=== PATIENT | female | born 1980 | race Caucasian/White ===

== ENCOUNTER → 2019-12-10 06:29 | Outpatient (CLI) | payer OTHER, SELFPAY ==
--- NOTE | 2019-12-10 14:16 | NEURO ---
NCS and/or EMG Patient Report Ordering Doctor: Iam De La Torre DATE OF SERVICE: 12/10/19 Shira Denis is a 39-year-old female presents for electrodiagnostic testing of the upper limbs. She reports numbness and pain in both hands. Electrodiagnostic findings: Median motor nerve demonstrates prolonged distal latency with normal amplitude and conduction velocity bilaterally. Normal ulnar motor response is noted bilaterally. Prolonged right median sensory latency at the wrist. Absent left median sensory response at the wrist. Normal ulnar and radial sensory responses. On needle EMG, all muscles tested in upper limb showed no evidence of denervation with normal motor unit action potentials. Electrodiagnostic assessment: This is an abnormal study in the upper limbs. 1. Electrodiagnostic findings demonstrate bilateral median mononeuropathy. This is consistent with a moderate bilateral carpal tunnel syndrome. If there are any further questions, please do not hesitate to contact me
== END ==
LOC: PSN 06:31
PROVIDERS: PCP Family Medicine; Referring Provider Specialist; Visit Provider Specialist
DX: R20.2 Paresthesia of skin (principal)
CPT/HCPCS: 95886; 95912

== ENCOUNTER 2022-03-22 15:38 | Observation (INO) | payer OTHER, SELFPAY ==
[2022-03-22] VITALS (12 sets, daily range): BP systolic 144–175; BP diastolic 74–99; PULSE 78–100; RESP 15–16; TEMP 36.4–36.7; O2SAT 98–100; BMI 28.6; BMI 27.8
--- NOTE | 2022-03-22 15:55 | EKG12_ITS ---
Test Reason : Blood Pressure : / mmHG Vent. Rate : 081 BPM Atrial Rate : 081 BPM P-R Int : 170 ms QRS Dur : 100 ms QT Int : 404 ms P-R-T Axes : 054 -08 037 degrees QTc Int : 469 ms Normal sinus rhythm Possible Left atrial enlargement Incomplete right bundle branch block Borderline ECG Confirmed by BRANDON MOORE, BEULAH ([id number]), city editor EARLE OSBORNE ([id number]) on 03/24/2022 2:16:28 P M Referred By: LUIGI/GRICELDA Confirmed By:DIPTI TAYLOR MD
--- NOTE | 2022-03-22 16:00 | RAD_ITS ---
EXAM: XR CHEST, 1 VIEW CLINICAL INDICATION: Stroke TECHNIQUE: Frontal view of the chest. This report was created using [employer] report generation technology. COMPARISON: None. FINDINGS: LUNGS AND PLEURAL SPACES: Normal. No consolidation or edema. No pneumothorax. No effusion. HEART: Normal heart size. MEDIASTINUM: No mediastinal or hilar mass. BONES/JOINTS: No acute abnormality. SOFT TISSUES: Normal. RAD/Chest 1 View (Portable) IMPRESSION: No acute cardiopulmonary disease. Electronically Signed: Rosales Man MD at 16:26 EDT ,
[2022-03-22 16:05] LABS: Absolute Lymphocyte Count 1.94 X10^3/uL (0.83-4.51); Absolute Neutrophil Count 4.9 X10^3/uL (2.0-7.7); Basophil# 0.04 X10^3/uL; Basophil% 0.5 % (0-1); Eosinophil# 0.04 X10^3/uL; Eosinophils% 0.5 % (0-5); Hematocrit 39.8 % (37-47); Lymphocyte # 1.94 X10^3/ul (0.83-4.51); Lymphocyte % 26.5 % (19-41); Mean Corp Hgb Conc 35.2 g/dL (32-36); Mean Corpuscular Volume 88.1 fL (81-99); Mean Platelet Vol. 9.9 fl (6.2-12.0); Monocyte# 0.38 X10^3/uL; Monocyte% 5.2 % (0-10); NRBC Flagged by Analyzer 0 % (0-5); Platelet Count 296 K/mm3 (150-450); RBC Distribution Width CV 12.5 % (11.6-14.6); Red Blood Count 4.52 M/mm3 (4.2-5.4); White Blood Count 7.3 K/mm3 (4.4-11.0)
[2022-03-22 16:19] LABS: Anion Gap 6 (5-15); BUN 13 mg/dL (7-18); BUN/Creat Ratio 13.3 RATIO (10-20); Calcium,Total 9.6 mg/dL (8.5-10.1); Chloride 105 mmol/L (98-107); Creatinine, Serum 0.98 mg/dL (0.55-1.02); EST Glomerular Filtration Rate 66 mL/min (>60); Est Glom Filt Rate - Afr Amer 80 mL/min (>60); Estimated Creatinine Clearance 70.72 ml/min; Glucose 115 mg/dL (74-106); Potassium 3.4 mmol/L (3.5-5.1); Sodium Level 137 mmol/L (136-145)
[2022-03-22] MEDS: Ondansetron 4 MG/2 ML Vial IV (16:44)
[2022-03-22] MEDS: LORazepam 2 MG/ML Syringe 0.5 MG IV (16:44)
[2022-03-22] MEDS: 0.9% Normal Saline 1,000 ML 1000 ML IV (16:44)
--- NOTE | 2022-03-22 16:45 | ED.VIS.STROK ---
HPI History of Present Illness Chief Complaint: Dizziness Informant: patient Narrative Narrative: Patient is a 41-year-old female with history of ADHD, depression and joint pain presenting for feeling disoriented and having mouth numbness. Patient states yesterday she felt disorientated nauseous all day. Today the symptoms have continued and at some point today she started to feel numbness around her mouth on the bottom lip as well as her left I numb and her left cheek is numb. She states she is has a hard time concentrating. Denies any blurry vision but does not feel that she is seeing things well. She also feels quite dizzy and has nausea but no vomiting. She denies any abdominal pain or change in her bowel habits. She denies any chest pain or new shortness of breath. She notes has been feeling short of breath since 2020 after she had a bad cold. She works as a electric truck operator and states it took everything she had to be able to concentrate to get back to her base. She cannot tell me exactly when the symptoms started but states has been a couple of hours. She also complains of having bumps on the back of her head. She saw her doctor who thought maybe she had spider bites and prescribed a strong antibiotic. She states they can be painful. States that sometimes they seem like they need to drain but there is no head to them. She did not fill the prescription for antibiotics because by the time she actually picked it up it already been restocked and she also was scared of taking it because her doctor warned her about how strong they are and that she might get diarrhea. No other complaints at this time. [facility] Medical History Carpal tunnel syndrome, bilateral Depression Home Medications dextroamphetamine-amphetamine 30 mg tablet (Adderall) 30 mg PO BID ADHD 03/22/22 [History Last Taken 03/22/22] duloxetine 60 mg capsule,delayed release 60 mg PO BID DEPRESSION 03/22/22 [History Last Taken 03/21/22] etodolac 400 mg tablet 400 mg PO BID PAIN 03/22/22 [History Last Taken 03/21/22] Allergy/AdvReac Type Severity Reaction Status Date / Time No Known Allergies Allergy Verified 03/22/22 15:39 Surgical History H/O bilateral breast reduction surgery Social History Smoking Status: Never smoker ROS ROS ED Constitutional Constitutional ED: Denies chills or fever(s) Eyes Eyes: Reports change in vision; Denies blurry vision or diplopia ENT ENT ED: Reports other Details: Congestion ; Denies rhinorrhea or sore throat Cardiovascular Cardiovascular: Denies chest pain or palpitations Respiratory/Chest Respiratory/Chest: Reports dyspnea; Denies cough Gastrointestinal Gastrointestinal: Reports nausea; Denies abdominal pain, constipation, diarrhea or vomiting Genitourinary Genitourinary ED: Denies dysuria or hematuria Musculoskeletal Musculoskeletal: Denies arthralgias or myalgias Integumentary Denies rash Neurologic Neurologic: Reports headache(s) and paresthesias Psychiatric Psychiatric: Reports anxiety Hematologic/Lymphatic Hematologic/Lymphatic: Denies easy bleeding or easy bruising EXAM Physical Exam Const Vital Signs: 03/22/22 15:40 03/22/22 15:44 03/22/22 15:56 Temperature 98 F Temperature Source Temporal Pulse Rate 99 Respiratory Rate 15 Respiratory Effort Normal Non-Labored Respiratory Pattern Normal Blood Pressure 160/93 H Blood Pressure Mean 115 Pulse Ox 100 100 Oxygen Delivery Method Room Air Room Air 03/22/22 15:55 03/22/22 16:25 03/22/22 16:30 Temperature Temperature Source Pulse Rate 100 88 80 Respiratory Rate 15 16 15 Respiratory Effort Respiratory Pattern Blood Pressure 163/85 H 175/85 H 169/77 H Blood Pressure Mean 111 115 107 Pulse Ox 99 99 99 Oxygen Delivery Method Room Air Room Air Room Air 03/22/22 16:45 03/22/22 17:00 03/22/22 17:00 Temperature Temperature Source Pulse Rate 81 81 Respiratory Rate 15 Respiratory Effort Respiratory Pattern Blood Pressure 152/78 H 152/78 H 152/78 H Blood Pressure Mean 102 102 102 Pulse Ox 99 Oxygen Delivery Method Room Air 03/22/22 17:30 03/22/22 18:00 03/22/22 18:00 Temperature Temperature Source Pulse Rate 84 83 83 Respiratory Rate 15 15 Respiratory Effort Respiratory Pattern Blood Pressure 170/78 H 167/83 H Blood Pressure Mean 108 111 Pulse Ox 100 100 Oxygen Delivery Method Room Air Room Air Positive well nourished and well developed General Appearance ED: well developed and NAD HEENT Reports TM's clear and moist mucous membranes atraumatic Tympanic Membrane ED: Yes TM's clear right and TM abnormal effusion and retracted Mouth ED: Yes oral and palatal mucosa normal and Yes moist mucous membranes abnormal Mouth: oral and palatal mucosa normal and moist mucous membranes abnormal Eyes PERRL and EOMs intact bilaterally Eyes Narrative: Unable to evaluate for nystagmus is every time patient tries to look in to either sideshe has to squeeze her eyes shut and gets dizzy Neck supple and no JVD Neck Narrative: No nuchal rigidity Chest Wall inspection of chest normal Resp normal respiratory effort and clear to auscultation bilaterally Cardio no murmurs Rate: regular rate Rhythm: regular rhythm GI normal to inspection, nondistended, normoactive bowel sounds, soft to palpation and non-tender Back/Spine no CVA tenderness Neuro oriented x3 and CN's II-XII intact bilaterally Sensorium / Orientation: alert Speech: speech normal Motor Exam: strength 5/5 throughout Psych Mood & Affect: anxious and tearful Skin no wounds Skin Narrative: Subcentimeter scattered erythematous raised lesions on the scalp most around the right occipital region. No associated drainage. The hair follicles in that area are broken off. No significant tenderness. No fluctuance appreciated. NIHSS NIHSS Initial: 1a Level of Consciousness: 0 1b LOC Questions (Score 2 if aphasic/stupor): 0 1c LOC Commands (Only score 1st attempt): 0 2 Best Gaze (If aphasic, use reflexive mvmts.): 0 3 Visual: 0 4 Facial Palsy: 0 5 Motor Arm Right (UN = amputation/fusion): 0 5 Motor Arm Left: 0 6 Motor Leg Right: 0 6 Motor Leg Left: 0 7 Limb ataxia (Only + if out of proportion): 0 8 Sensory (Aphasia/stupor=0 or 1, coma=2): 1 9 Best Language: 0 10 Dysarthria (mute, coma=2, intubated=UN): 0 11 Extinction and Inattention (only scored if +): 0 Total Score: 1 MDM MDM MDM Narrative Medical decision making narrative: Patient is evaluated for dizziness, paresthesias of the left side and feeling disoriented. Symptoms started yesterday. Her NIH is 1 for paresthesias. She does have what appears to be vertigo however given her paresthesias I do not think I can rule out central vertigo. She not a tPA candidate given her symptoms started yesterday. I do question of there is a component of anxiety associated with her symptoms. She is given dose of Ativan with improvement of her symptoms. Patient is also given IV fluids and Zofran. On repeat evaluation she states she is feeling better but does have nystagmus more so with leftward gaze. She is still quite symptomatic and I do not think she will tolerate a Chrissie-Hallpike maneuver at this time. Patient now only has paresthesias of her face but no longer has paresthesias of her arm and leg. Work-up including CT of the brain, chest x-ray and lab work as well as EKG is largely unremarkable. Patient is given aspirin in the ER. She will be admitted for further stroke evaluation. Patient and significant other agreeable this plan of care. Patient remains hemodynamically stable in the ER. Lab Data Attestation: I reviewed the patient's lab results. Labs: Laboratory Results - last 24 hr 03/22/22 03/22/22 03/22/22 15:43 15:43 15:43 WBC 7.3 RBC 4.52 Hgb 14.0 Hct 39.8 MCV 88.1 MCH 31.0 MCHC 35.2 RDW Std Deviation 41.0 RDW Coeff of Bob 12.5 Plt Count 296 MPV 9.9 Immature Gran % (Auto) 0.300 Neut % (Auto) 67.0 Lymph % (Auto) 26.5 [place] % (Auto) 5.2 Eos % (Auto) 0.5 Baso % (Auto) 0.5 Absolute Neuts (auto) 4.9 Absolute Lymphs (auto) 1.94 Nucleated RBC % 0 PT 13.2 INR 1.0 APTT 28.3 Sodium 137 Potassium 3.4 L Chloride 105 Carbon Dioxide 26.0 Anion Gap 6 BUN 13 Creatinine 0.98 Estim Creat Clear Calc 70.72 Est GFR (MDRD) Af Amer 80 Est GFR (MDRD) Non-Af 66 BUN/Creatinine Ratio 13.3 Glucose 115 H Calcium 9.6 Urine Color Urine Clarity Urine pH Ur Specific [place] Urine Protein Urine Glucose (UA) Urine Ketones Urine Occult Blood Urine Nitrite Urine Bilirubin Urine Urobilinogen Ur Leukocyte Esterase Urine RBC Urine WBC Ur Squamous Epith Cells Urine Bacteria Urine Mucus Urine Test 03/22/22 17:28 WBC RBC Hgb Hct MCV MCH MCHC RDW Std Deviation RDW Coeff of Bob Plt Count MPV Immature Gran % (Auto) Neut % (Auto) Lymph % (Auto) [place] % (Auto) Eos % (Auto) Baso % (Auto) Absolute Neuts (auto) Absolute Lymphs (auto) Nucleated RBC % PT INR APTT Sodium Potassium Chloride Carbon Dioxide Anion Gap BUN Creatinine Estim Creat Clear Calc Est GFR (MDRD) Af Amer Est GFR (MDRD) Non-Af BUN/Creatinine Ratio Glucose Calcium Urine Color Yellow Urine Clarity Clear Urine pH 8.0 Ur Specific [place] 1.010 Urine Protein Negative Urine Glucose (UA) Normal Urine Ketones Negative Urine Occult Blood Negative Urine Nitrite Negative Urine Bilirubin Negative Urine Urobilinogen Normal Ur Leukocyte Esterase 25 H Urine RBC 0 SEEN Urine WBC 0 SEEN Ur Squamous Epith Cells 0 SEEN Urine Bacteria 0 SEEN Urine Mucus 0 SEEN Urine Test Negative Radiography Diagnostic Testing: Clinical Impression(s) from Imaging Studies Chest X-Ray 03/22/22 16:00 IMPRESSION: No acute cardiopulmonary disease. Electronically Signed: Rosales Man MD at 16:26 EDT , Brain CT 03/22/22 16:53 IMPRESSION: There are no acute intracranial findings. Electronically Signed: Ari Jeter MD at 17:07 EDT , Rhythm Strip Rhythm Strip: Sinus Rhythm Rate: 81 Ectopy: None EKG Initial EKG: Attestation: I personally reviewed and interpreted this EKG as follows: Interpretation: Sinus Rhythm Comments: Normal sinus rhythm at a rate of 81 Normal axis Incomplete right bundle branch block Normal ST segments Discharge Plan Dx/Rx/DC Orders Clinical Impression: Left facial numbness, Dizziness Disposition Disposition: Acute Care Hospital [facility] Discharge Date/Time: 03/22/22 18:46
--- NOTE | 2022-03-22 16:53 | CT_ITS ---
STUDY: CT BRAIN WITHOUT CONTRAST REASON FOR EXAM: Female, 41 years old. dizziness, left sided paresthesias TECHNIQUE: Transaxial CT imaging of the brain was performed without administration of intravenous contrast material. Individualized dose optimization techniques were used for this CT. COMPARISON: None FINDINGS: Normal calvarium. Normal soft tissues. Normal size ventricles and extra-axial spaces for the patient''s age. Normal white matter tracts of the cerebral hemispheres. Normal basal ganglia and thalami. Normal brainstem. Normal cerebellum. There is no intracranial hemorrhage. There are no findings of an acute ischemic infarction. There is sinus disease. ASPECTS 10 CT/Brain/Head without Contrast IMPRESSION: There are no acute intracranial findings. Electronically Signed: Ari Jeter MD at 17:07 EDT ,
[2022-03-22 17:01] LABS: Prothrombin Time (Protime)PT. 13.2 SECONDS (11.7-14.9)
[2022-03-22 17:02] LABS: Partial Thromboplast Time 28.3 Seconds (24.1-36.2)
[2022-03-22 17:31] LABS: Bacteria 0 SEEN /hpf (None Seen); Mucous, Urine 0 SEEN /hpf (<or=2+); Red Blood Cells-Urine 0 SEEN /hpf (0-5); Squamous Epithelial Cells - UA 0 SEEN /hpf (5-10); White Blood Cells 0 SEEN /hpf (0-5)
[2022-03-22 17:42] LABS: Color, Urine Yellow (Yellow); Glucose, Dipstick Normal (Normal); Ketone-Dipstick Negative (Negative); Leukocyte Esterase-Dipstick 25 /ul (Negative); Nitrite-Dipstick Negative (Negative); Occult Blood-Urine Negative /ul (Negative); Protein-Dipstick Negative (Negative); Urine Bilirubin Dipstick Negative (Negative); Urine Clarity Clear (Clear); Urine Urobilinogen Normal (Normal)
[2022-03-22 17:48] LABS: Internal QC Validated? YES +Cl - CLEAR BKGD; Pregnancy, Urine Negative Negative
--- NOTE | 2022-03-22 18:15 | NURSING ---
DR BOWDEN FOR DR GARCIA
--- NOTE | 2022-03-22 18:25 | NURSING ---
PCU OBS KOTSONIS VERTIGO, PARESTESIAS
[2022-03-22] MEDS: Aspirin 325 MG Tablet PO (18:37)
[2022-03-22] MEDS: Meclizine HCl 25 MG Tablet PO (18:37)
--- NOTE | 2022-03-22 18:41 | PCM.HP.STD ---
HPI - General General Date of Admission: 03/22/22 HPI Narrative MELI KYLE, is a 41 F who presents to the hospital with and inability to focus, dizziness, and left facial numbness. 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 She states that while she was in the ambulance on her way to the hospital she could not smile, she states that the numbness is is much better now though still present and in the ER her NIH is a 1. CT of the brain was unremarkable. Of note she takes a chronic NSAID for multi joint pain. 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 Since she had COVID or which she assumes was COVID in 2020, this because she refused to get tested and refused to be vaccinated, she has also developed what sounds like Raynaud's syndrome in her hands and increased pain in her joints including both of her feet both of her knees and both of her hips. [facility] Medical History Carpal tunnel syndrome, bilateral Depression Home Medications dextroamphetamine-amphetamine 30 mg tablet (Adderall) 30 mg PO BID ADHD 03/22/22 [History Last Taken 03/22/22] duloxetine 60 mg capsule,delayed release 60 mg PO BID DEPRESSION 03/22/22 [History Last Taken 03/21/22] etodolac 400 mg tablet 400 mg PO BID PAIN 03/22/22 [History Last Taken 03/21/22] Allergy/AdvReac Type Severity Reaction Status Date / Time No Known Allergies Allergy Verified 03/22/22 15:39 Family History no significant family his no significant family history Surgical History H/O bilateral breast reduction surgery Social History Smoking Status: Never smoker ROS Constitutional Constitutional: Denies chills, fatigue, fever(s) or malaise Eyes Eyes: Denies blurry vision ENT HEENT: Denies headache(s) or nasal discharge Cardiovascular Cardiovascular: Denies chest pain, dyspnea on exertion or syncope Respiratory/Chest Respiratory/Chest: Denies cough, shortness of breath at rest or shortness of breath with exertion Gastrointestinal Gastrointestinal: Denies constipation, diarrhea, nausea or vomiting Genitourinary Genitourinary: Denies dysuria Musculoskeletal Musculoskeletal: Reports joint pain Neurologic Neurologic: Reports confusion and paresthesias; Denies focal weakness, numbness or tremor(s) Psychiatric Psychiatric: Denies anxiety or depression Vital Signs Vital Signs Vital Signs: 03/22/22 15:40 03/22/22 15:44 03/22/22 15:56 Temperature 98 F Temperature Source Temporal Pulse Rate 99 Respiratory Rate 15 Respiratory Effort Normal Non-Labored Respiratory Pattern Normal Blood Pressure 160/93 H Blood Pressure Mean 115 Pulse Ox 100 100 Oxygen Delivery Method Room Air Room Air 03/22/22 15:55 03/22/22 16:25 03/22/22 16:30 Temperature Temperature Source Pulse Rate 100 88 80 Respiratory Rate 15 16 15 Respiratory Effort Respiratory Pattern Blood Pressure 163/85 H 175/85 H 169/77 H Blood Pressure Mean 111 115 107 Pulse Ox 99 99 99 Oxygen Delivery Method Room Air Room Air Room Air 03/22/22 16:45 03/22/22 17:00 03/22/22 17:00 Temperature Temperature Source Pulse Rate 81 81 Respiratory Rate 15 Respiratory Effort Respiratory Pattern Blood Pressure 152/78 H 152/78 H 152/78 H Blood Pressure Mean 102 102 102 Pulse Ox 99 Oxygen Delivery Method Room Air 03/22/22 17:30 03/22/22 18:00 03/22/22 18:00 Temperature Temperature Source Pulse Rate 84 83 83 Respiratory Rate 15 15 Respiratory Effort Respiratory Pattern Blood Pressure 170/78 H 167/83 H Blood Pressure Mean 108 111 Pulse Ox 100 100 Oxygen Delivery Method Room Air Room Air 03/22/22 18:21 Temperature 97.6 F L Temperature Source Temporal Pulse Rate 88 Respiratory Rate 15 Respiratory Effort Respiratory Pattern Blood Pressure 165/75 H Blood Pressure Mean 105 Pulse Ox 100 Oxygen Delivery Method Room Air Weight Weight: 177 lb 7.554 oz Body Mass Index (BMI) 28.6 Physical Exam Narrative General: Alert, Oriented x3, Cooperative, No apparent distress HEENT: Atraumatic, PERRLA, EOMI, Normocephalic Oral: Moist Mucosa Neck: Supple, No JVD Lungs: Clear to auscultation, Normal air movement, No rhonchi, No wheeze, No rales Cardiovascular: Regular rate, Regular Rhythm, Normal S1, Normal S2, JESUS since childhood Abdomen: Soft, Non Tender, Non-Distended, No Hepato-splenomegaly Extremities: No edema, Capillary Refill Less than 3 Seconds Skin: No rashes, No breakdown Musculoskeletal: Heberden's nodes in all of her fingers Neurological: Cranial nerves II-XII grossly intact, Motor Exam 5/5 strength throughout, Sensory exam intact to light touch and pain in her extremities, decreased sensation in her left face compared to the right face Psych/Mental Status: Normal Affect, Appropriate Results Lab / Micro Data Result Diagrams: 03/22/22 15:43 03/22/22 15:43 Labs: Laboratory Results - last 24 hr 03/22/22 15:43: WBC 7.3, RBC 4.52, Hgb 14.0, Hct 39.8, MCV 88.1, MCH 31.0, MCHC 35.2, RDW Std Deviation 41.0, RDW Coeff of Bob 12.5, Plt Count 296, MPV 9.9, Immature Gran % (Auto) 0.300, Neut % (Auto) 67.0, Lymph % (Auto) 26.5, [place] % (Auto) 5.2, Eos % (Auto) 0.5, Baso % (Auto) 0.5, Absolute Neuts (auto) 4.9, Absolute Lymphs (auto) 1.94, Nucleated RBC % 0 03/22/22 15:43: PT 13.2, INR 1.0, APTT 28.3 03/22/22 15:43: Sodium 137, Potassium 3.4 L, Chloride 105, Carbon Dioxide 26.0, Anion Gap 6, BUN 13, Creatinine 0.98, Estim Creat Clear Calc 70.72, Est GFR (MDRD) Af Amer 80, Est GFR (MDRD) Non-Af 66, BUN/Creatinine Ratio 13.3, Glucose 115 H, Calcium 9.6 03/22/22 17:28: Urine Color Yellow, Urine Clarity Clear, Urine pH 8.0, Ur Specific [place] 1.010, Urine Protein Negative, Urine Glucose (UA) Normal, Urine Ketones Negative, Urine Occult Blood Negative, Urine Nitrite Negative, Urine Bilirubin Negative, Urine Urobilinogen Normal, Ur Leukocyte Esterase 25 H, Urine RBC 0 SEEN, Urine WBC 0 SEEN, Ur Squamous Epith Cells 0 SEEN, Urine Bacteria 0 SEEN, Urine Mucus 0 SEEN, Urine Test Negative Radiology Impression Chest X-Ray 03/22/22 16:00 IMPRESSION: No acute cardiopulmonary disease. Electronically Signed: Rosales Man MD at 16:26 EDT , Brain CT 03/22/22 16:53 IMPRESSION: There are no acute intracranial findings. Electronically Signed: Ari Jeter MD at 17:07 EDT , Assessment & Plan Assessment/Plan (1) Dizziness: (2) Left facial numbness: PLAN: Plan 1. CVA rule out secondary to left facial numbness, dizziness as well as a brain fog ? We will proceed with typical stroke work-up with an MRI and an echo in the morning, NIH of 1 for me on exam ? Continue with Lipitor and aspirin ? PT/OT evaluation 2. Chronic joint pain with possible Raynaud's ? It does appear that the Raynaud's started after her viral illness and 2020 ? Her joint pain is worse since that viral infection. ? She would likely benefit from a rheumatologic work-up as an outpatient with PEDRO as well as rheumatoid factors and other inflammatory markers 3. ADHD/anxiety/depression ? Continue with her Adderall and Cymbalta ? Stable DVT: Ambulation Charges/Coding Visit Charges OBSV E&M: 81854 Initial observation care L2
--- NOTE | 2022-03-22 18:52 | ECHOD_ITS ---
Reason For Study: TIA/CVA Procedure This was a 2D Doppler, Color Flow transthoracic echocardiogram. Exam performed portable in patient room. Left Ventricle Normal LV size. The estimated ejection fraction is 55 %. Normal diastology for age. No regional wall motion abnormalities noted. Right Ventricle Normal RV size. Normal systolic function. Atria Normal left atrium. Normal right atrium. No doppler evidence for ASD. Bubble contrast study negative for right to left interatrial shunt. Mitral Valve There is no mitral valve stenosis. No mitral valve insufficiency. Tricuspid Valve There is no tricuspid stenosis. No tricuspid valve insufficiency. Aortic Valve Trisinus/trileaflet aortic valve. Aortic sclerosis, no stenosis. There is no aortic stenosis. No aortic valve insufficiency. Pulmonic Valve There is no pulmonic valvular stenosis. Trivial pulmonic valve insufficiency. Great Vessels Normal aortic root. Pericardium/Pleural No pericardial effusion. Medication Performed a rapid injection of agitated mix of 9 cc saline and 1cc air to assess for atrial septal defect. MMode/2D Measurements & Calculations LVIDd: 4.4 cm IVSd: 1.3 cm LVOT diam: 2.0 cm LVIDs: 2.9 cm LVPWd: 1.1 cm RVDd: 3.1 cm FS: 35.0 % LVOT area: 3.1 cm2 Ao root diam: 3.1 cm LAV(MOD-bp): 48.4 ml LA A4 area: 16.7 cm2 LA dimension: 3.4 cm LAV(MOD-bp) Indexed: 26.1 ml/m2 LAV(MOD-sp2): 55.1 ml LAV(MOD-sp4): 41.7 ml RA A4 area: 12.1 cm2 Time Measurements MV dec time: 0.19 sec Doppler Measurements & Calculations MV E max sp: 99.0 cm/sec Lat Peak E' Sp: 7.2 cm/sec Med Peak E' Sp: 7.6 cm/sec MV A max sp: 92.8 cm/sec E/E' lat: 13.8 E/E' med: 13.0 MV E/A: 1.1 MV V2 max: 155.1 cm/sec MV P1/2t max sp: 155.1 cm/sec Ao V2 max: 221.3 cm/sec MV max P.6 mmHg MV P1/2t: 79.0 msec Ao max P.6 mmHg MV V2 mean: 72.7 cm/sec MV dec slope: 574.8 cm/sec2 Ao V2 mean: 155.9 cm/sec MV mean P.7 mmHg Ao mean P.9 mmHg MV V2 VTI: 40.1 cm MVA(P1/2t): 2.8 cm2 Ao V2 VTI: 51.4 cm MVA(VTI): 1.8 cm2 BANDAR(I,D): 1.4 cm2 BANDAR(V,D): 1.3 cm2 LV V1 max: 94.9 cm/sec SV(LVOT): 73.0 ml PA V2 max: 89.3 cm/sec LV V1 max P.6 mmHg LV V1 mean P.3 mmHg LV V1 mean: 71.4 cm/sec LV V1 VTI: 23.6 ECHO/Echo Complete Interpretation Summary The estimated ejection fraction is 55 %. Aortic sclerosis, no stenosis. Ordering Physician: Pradeep Villanueva Referring Physician: MD Daxa Sebastien Performed By: Darian Alcaraz RCS
[2022-03-22] MEDS: 0.9% Normal Saline 1,000 ML 100 ML IV (20:11)
[2022-03-22] MEDS: Atorvastatin Calcium 80 MG Tablet PO (21:51)
[2022-03-22] MEDS: Potassium Chloride Oral Tablet 20 MEQ 40 MEQ PO (21:51)
[2022-03-22] MEDS: DULoxetine Hcl 60 MG Capsule PO (21:51)
[2022-03-22] MEDS: MELATONIN 3 MG TABLET PO (21:51)
[2022-03-23] VITALS (16 sets, daily range): BP systolic 123–150; BP diastolic 60–87; PULSE 59–82; RESP 14–18; TEMP 36.1–37; O2SAT 98–100; BMI 27.8
[2022-03-23 05:33] LABS: Absolute Lymphocyte Count 2.12 X10^3/uL (0.83-4.51); Absolute Neutrophil Count 2.7 X10^3/uL (2.0-7.7); Basophil# 0.03 X10^3/uL; Basophil% 0.6 % (0-1); Eosinophil# 0.12 X10^3/uL; Eosinophils% 2.2 % (0-5); Hematocrit 38.5 % (37-47); Hemoglobin 12.6 g/dL (12.0-15.0); Lymphocyte # 2.12 X10^3/ul (0.83-4.51); Lymphocyte % 39.5 % (19-41); Mean Corp Hgb Conc 32.7 g/dL (32-36); Mean Corpuscular Hgb 30.3 pg (27.0-32.0); Mean Corpuscular Volume 92.5 fL (81-99); Monocyte# 0.37 X10^3/uL; Monocyte% 6.9 % (0-10); NRBC Flagged by Analyzer 0 % (0-5); Neutrophil # 2.72 X10^3/uL (2.7-7.7); Neutrophil % 50.6 % (47-70); Platelet Count 234 K/mm3 (150-450); RBC Distribution Width CV 12.8 % (11.6-14.6); RBC Distribution Width SD 43.6 fl (35.1-43.9); Red Blood Count 4.16 M/mm3 (4.2-5.4); White Blood Count 5.4 K/mm3 (4.4-11.0)
[2022-03-23] MEDS: 0.9% Normal Saline 1,000 ML 100 ML IV ×2 (05:51→16:01)
[2022-03-23 05:53] LABS: Anion Gap 4 (5-15); BUN 12 mg/dL (7-18); BUN/Creat Ratio 14.1 RATIO (10-20); Calcium,Total 8.2 mg/dL (8.5-10.1); Chloride 110 mmol/L (98-107); Cholesterol 165 mg/dL (200); Creatinine, Serum 0.85 mg/dL (0.55-1.02); EST Glomerular Filtration Rate 78 mL/min (>60); Est Glom Filt Rate - Afr Amer 95 mL/min (>60); Estimated Creatinine Clearance 81.54 ml/min; Glucose 90 mg/dL (74-106); High Density Lipoprotein 71 mg/dL; Potassium 4.4 mmol/L (3.5-5.1); Sodium Level 139 mmol/L (136-145); Triglycerides 64 mg/dL; Very Low Density Lipoprotein 13 mg/dL (5-40)
--- NOTE | 2022-03-23 06:00 | MRI_ITS ---
HISTORY: CVA. TECHNIQUE: Multiplanar and multisequence MR images of the brain were obtained without contrast. 298 images. COMPARISON: CT prior day. FINDINGS: BRAIN PARENCHYMA: No significant signal abnormality in the brain parenchyma. No abnormal focus of restricted diffusion. No acute intracranial hemorrhage identified. CSF SPACES: Cerebral ventricles, cortical sulci, and other extra-axial CSF spaces within normal limits in size. No significant midline shift or other mass effect.No extra-axial fluid collection. VASCULAR SYSTEM: Major intracranial flow voids are maintained. OTHER: Symmetrical orbital contents. Small mucous retention cysts in the maxillary sinuses and ethmoid air cells. Small right parietal bone hemangioma. MRI/Brain without Contrast IMPRESSION: Unremarkable examination. No evidence for acute infarct or other significant signal abnormality in the brain. Electronically Signed: Jeannie Hudson MD at 10:09 EDT ,
[2022-03-23] MEDS: LORazepam 1 MG Tablet PO (08:33)
--- NOTE | 2022-03-23 09:54 | TELEMED_ITS ---
[facility] has confirmed receipt of a request for visit. This document confirms receipt of the order initiating the consult. To find the results of the consultation, please view the patient's reports for the scanned Telemed Consult.
[2022-03-23] MEDS: Aspirin 81 MG TAB.CHEW PO (10:27)
[2022-03-23] MEDS: DULoxetine Hcl 60 MG Capsule PO (10:27)
--- NOTE | 2022-03-23 12:55 | MRI_ITS ---
EXAM: MR HEAD WITH INTRAVENOUS CONTRAST CLINICAL INDICATION: stroke TECHNIQUE: Multiplanar and multisequence MR images of the brain were obtained with intravenous contrast. This report was created using [employer] report generation technology. CONTRAST: IV 15mL Clariscan COMPARISON: MRI without 03.23.22 FINDINGS: BRAIN AND EXTRA-AXIAL SPACES: Unremarkable. No intra- or extra-axial hemorrhage. No evidence of acute infarct. No intracranial mass or mass effect. There is preservation of the henao/white matter interface. Posterior fossa structures are unremarkable. Ventricles are appropriate for age. No hydrocephalus. Basal cisterns are patent. SELLA: Unremarkable. Normal sella turcica, pituitary gland, infundibular stalk, optic chiasm and hypothalamus. AUDITORY SYSTEM: Unremarkable. The internal auditory canals are patent. BONES/JOINTS: Unremarkable. No discrete lytic or blastic abnormalities. SINUSES: Unremarkable as visualized. Clear. MASTOID AIR CELLS: Unremarkable as visualized. Clear. ORBITS: Unremarkable as visualized. Both globes, extraocular muscles, optic nerves and retrobulbar fat appear unremarkable. VASCULATURE: Unremarkable as visualized. Normal flow voids in the major intracranial circulation. MRI/Brain WITH Contrast IMPRESSION: Negative MRI brain with intravenous contrast. Electronically Signed: Ari Jeter MD at 16:22 EDT ,
--- NOTE | 2022-03-23 12:55 | MRI_ITS ---
EXAM: MR VENOGRAPHY HEAD WITHOUT INTRAVENOUS CONTRAST CLINICAL INDICATION: stroke TECHNIQUE: Magnetic resonance venography images of the head without intravenous contrast. This report was created using [employer] report generation technology. COMPARISON: None. FINDINGS: SUPERIOR SAGITTAL SINUS: Unremarkable. Patent. STRAIGHT SINUS: Unremarkable. Patent. TRANSVERSE SINUSES: Unremarkable. Patent. SIGMOID SINUSES: Unremarkable. Patent. INTERNAL JUGULAR VEINS: Unremarkable as visualized. INTERNAL CEREBRAL AND CORTICAL VEINS: Unremarkable as visualized. MRI/MRV Head Without Contrast IMPRESSION: Normal head/brain MRV. Electronically Signed: Ari Jeter MD at 16:27 EDT ,
[2022-03-23] MEDS: LORazepam 2 MG/ML Syringe 1 MG IV (14:40)
--- NOTE | 2022-03-23 15:25 | NURSING ---
Pt tolerated MRI well. Floor called for transport back via .
--- NOTE | 2022-03-23 16:29 | DS.PCM_ITS ---
Providers Date of Admission: 03/22/22 Date of Discharge: 03/23/22 Primary Care Physician: Dr. Sebastien Mittal MD Reason For Visit: CVA Diagnosis Discharge Diagnosis (1) Dizziness: Status: Acute Code(s): R42 - Dizziness and giddiness (2) Left facial numbness: Status: Acute Code(s): R20.0 - Anesthesia of skin Medications at Discharge Home Medications dextroamphetamine-amphetamine 30 mg tablet (Adderall) 30 mg PO BID ADHD 03/22/22 duloxetine 60 mg capsule,delayed release 60 mg PO BID DEPRESSION 03/22/22 etodolac 400 mg tablet 400 mg PO BID PAIN 03/22/22 Hospital Course Operations None Procedures 2-D Echocardiogram and - (MRI of the brain with and without contrast/MRV) Summary of Care Provided Minutes Spent on Discharge: 28 Hospital Course: Mrs. Denis is a 41-year-old white female who presented to the emergency department [facility] on 03/22/2022 complaining of the inability to focus, dizziness, and left facial numbness. She reported that the symptoms started at approximately 24 to 48 hours prior to presentation. 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 She reported that while she was in the ambulance on the way to the hospital she could not smile. At the time of the initial evaluation by the hospitalist her numbness had almost resolved and her NIH was 1. No facial droop was noted. Her vital signs were overall unremarkable in the emergency department. Her lab work was unremarkable. CT of her brain was performed and showed no acute changes. She reported on presentation that she has had an issue with multiple joint pain, Raynaud's phenomenon in her hands, and generalized body aches for the last 2 to 3 years for which she was prescribed chronic NSAIDs. She has never had any other rheumatological work-up prior to this admission. She was admitted under stroke protocol to the PCU and MRI of the brain was done which was negative. Her echocardiogram showed a negative bubble study and was only significant for aortic sclerosis without stenosis. Neurology was consulted and recommended an MRV and an MRI with contrast be performed both of which were done and were negative for any acute pathology. Her headache had improved at the time of my reevaluation. With a negative work-up we felt that she could be discharged home in stable condition and follow-up with outpatient neurology. We did recommend outpatient rheumatology follow-up as well and she indicated she would call [facility] for outpatient evaluation after discharge. I have instructed her to follow-up with her primary care physician in the next 1 to 2 weeks. No medications changes were made at the time of discharge. Physical Exam Const alert, oriented x3, no apparent distress, healthy appearing and well nourished General Appearance: cooperative, comfortable, well kempt and well developed Orientation / Consciousness: awake, oriented to person, oriented to place and or iented to time Exam Limitations: no limitations Nutritional Appearance: overweight HEENT normocephalic, head/scalp atraumatic, hearing grossly normal bilaterally and moist oral mucous membranes HEENT Narrative: Mallampati 2, no thrush, dentition is good Eyes PERRL, EOMs intact bilaterally and conjunctivae normal Eyes Narrative: No scleral icterus Neck no lymphadenopathy and supple Neck Narrative: Trachea midline, no thyroid enlargement Resp normal respiratory effort, no retractions, no use of accessory muscles and clear to auscultation bilaterally Auscultation: Negative for crackles, rales, rhonchi or wheezes Cardio regular rate, regular rhythm, S1 normal heart sound, S2 normal heart sound, no rub, no gallops, no clicks and no JVD Cardio Narrative: 3 out of 6 systolic murmur that radiates to both carotids GI normal to inspection, nondistended, normoactive bowel sounds, soft to palpation and non-tender; Negative for hepatosplenomegaly Extremity no clubbing, cyanosis or edema Extremity Narrative: 2+ pedal pulses Skin no rashes or lesions noted, no wounds, skin turgor normal and no jaundice Neuro oriented x3, moves all extremities and no focal motor deficits Neuro Narrative: On my exam patient had some residual sensation deficit on the second and third portion of the trigeminal nerve on the left side, motor exam was completely normal throughout, reflexes were 2+ bilateral upper and lower extremities Speech: speech normal Motor Exam: strength 5/5 throughout Psych affect normal Psych Narrative: Very pleasant and appropriately interactive Weight / BMI Weight Weight: 78.3 kg Body Mass Index (BMI) 27.8 ABG / Lab / Microbiology Data Result Diagrams: 03/23/22 04:57 03/23/22 04:57 Laboratory: Laboratory Results - last 24 hr 03/22/22 15:43: PT 13.2, INR 1.0, APTT 28.3 03/22/22 17:28: Urine Color Yellow, Urine Clarity Clear, Urine pH 8.0, Ur Specific [place] 1.010, Urine Protein Negative, Urine Glucose (UA) Normal, Urine Ketones Negative, Urine Occult Blood Negative, Urine Nitrite Negative, Urine Bilirubin Negative, Urine Urobilinogen Normal, Ur Leukocyte Esterase 25 H, Urine RBC 0 SEEN, Urine WBC 0 SEEN, Ur Squamous Epith Cells 0 SEEN, Urine Bacteria 0 SEEN, Urine Mucus 0 SEEN, Urine Test Negative 03/23/22 04:57: WBC 5.4, RBC 4.16 L, Hgb 12.6, Hct 38.5, MCV 92.5, MCH 30.3, MCHC 32.7 D, RDW Std Deviation 43.6, RDW Coeff of Bob 12.8, Plt Count 234, MPV 10.0, Immature Gran % (Auto) 0.200, Neut % (Auto) 50.6, Lymph % (Auto) 39.5, [place] % (Auto) 6.9, Eos % (Auto) 2.2, Baso % (Auto) 0.6, Absolute Neuts (auto) 2.7, Absolute Lymphs (auto) 2.12, Nucleated RBC % 0 03/23/22 04:57: Sodium 139, Potassium 4.4, Chloride 110 H, Carbon Dioxide 25.0, Anion Gap 4 L, BUN 12, Creatinine 0.85, Estim Creat Clear Calc 81.54, Est GFR (MDRD) Af Amer 95, Est GFR (MDRD) Non-Af 78, BUN/Creatinine Ratio 14.1, Glucose 90, Calcium 8.2 L, Triglycerides 64, Cholesterol 165, LDL Cholesterol 81, VLDL Cholesterol 13, HDL Cholesterol 71 Radiography Diagnostic Testing: Radiology Impression Brain CT 03/22/22 16:53 IMPRESSION: There are no acute intracranial findings. Electronically Signed: Ari Jeter MD at 17:07 EDT Reading Location ID and State: [facility] / [place] , Service support , Echocardiogram 03/22/22 18:52 Interpretation Summary The estimated ejection fraction is 55 %. Aortic sclerosis, no stenosis. Ordering Physician: Pradeep Villanueva Referring Physician: MD Daxa Sebastien Performed By: Darian Alcaraz RCS Brain MRI 03/23/22 06:00 IMPRESSION: Unremarkable examination. No evidence for acute infarct or other significant signal abnormality in the brain. Electronically Signed: Jeannie Hudson MD at 10:09 EDT , Brain MRI 03/23/22 12:55 IMPRESSION: Negative MRI brain with intravenous contrast. Electronically Signed: Ari Jeter MD at 16:22 EDT , Brain MRI 03/23/22 12:55 IMPRESSION: Normal head/brain MRV. Electronically Signed: Ari Jeter MD at 16:27 EDT , D/C Instructions Discharge Diet: No restrictions Discharge Activity: Return to Normal Activity Return to work on: 03/25/22 Meaningful Use Info Meaningful Use Diagnoses (Choose all that apply): None applicable Discharge Plan Admission Admit Date/Time: 03/22/22 18:14 Primary Reason for Your Visit: Left facial numbness/dizziness Attending Provider: Debi Leslie Primary Care Provider: Sebastien Mittal Consulting Providers: Pradeep Villanueva Instructions Additional Instructions / Restrictions: 1. I would recommend you follow-up with a color laboratory technician. I would recommend [facility] rheumatology. I would call as soon as possible to make an appointment. I expect that it will take some time for you to get into see anyone. Discharge Orders/Prescriptions Prescriptions: Continued dextroamphetamine-amphetamine [Adderall] 30 mg Tablet 30 mg PO BID etodolac 400 mg Tablet 400 mg PO BID duloxetine 60 mg capsule,delayed release(DR/EC) 60 mg PO BID Label Comments: TAKE 1 CAPSULE BY MOUTH TWICE A DAY Referrals / Follow Up: Sebastien Mittal MD [Primary Care Provider] - Within 2 Weeks Marcus Nails MD [Non-Staff] - Within 1 Month (Please call as soon as possible to make an appointment. It could take up to 1 to 2 months to get into see Dr. Nails for neurology.) Disposition Disposition (needs filled in before D/C Order can be placed): Home, Self Care Charges/Coding Visit Charges OBSV E&M: 76657 Observation care discharge
== END 2022-03-23 17:33 | disposition home or self-care (01) ==
LOC: ED 16:37 → PCU 18:30
PROVIDERS: Admitting Provider Family Medicine; Emergency Provider Emergency Medicine; PCP Family Medicine; Visit Provider Internal Medicine
DX: R42 Dizziness and giddiness (principal); I70.0 Atherosclerosis of aorta; R06.02 Shortness of breath; F90.9 Attention-deficit hyperactivity disorder, unspecified type; R20.0 Anesthesia of skin; Z79.899 Other long term (current) drug therapy; F32.A Depression, unspecified; F41.9 Anxiety disorder, unspecified; I73.00 Raynaud's syndrome without gangrene; Z86.16 Personal history of COVID-19; Z79.82 Long term (current) use of aspirin
CPT/HCPCS: 36415; 70450; 70544; 70551; 70552; 71045; 80048; 80061; 81001; 81025; 85025; 85610; 85730; 93005; 93306; 94762; 96361; 96374; 96375; 96376; 97161; 97166; 97802; 99218; 99285; A9575; J7030; A4216; G0378; J2405

== ENCOUNTER 2024-02-26 02:04 | Emergency (ER) | payer OTHER, SELFPAY ==
[2024-02-26 02:04] VITALS: BP 173/78; PULSE 75; RESP 18; TEMP 36.5; O2SAT 100; BMI 35.1
--- NOTE | 2024-02-26 02:16 | EKG12_ITS ---
Test Reason : DYSRHYTHMIA Blood Pressure : / mmHG Vent. Rate : 066 BPM Atrial Rate : 066 BPM P-R Int : 180 ms QRS Dur : 092 ms QT Int : 398 ms P-R-T Axes : 005 -06 013 degrees QTc Int : 417 ms Normal sinus rhythm RSR' or QR pattern in V1 suggests right ventricular conduction delay Borderline ECG Confirmed by WILLY MOORE, NATALIA ([id number]), assistant film editor IAN SPAULDING ([id number]) on 02/26/2024 8:54:04 AM Referred By: Confirmed By:NATALIA AGUILERA MD
--- NOTE | 2024-02-26 02:16 | RAD_ITS ---
INDICATION: dyspnea EXAMINATION/TECHNIQUE: X-RAY - XR Chest 1 View AP portable. 3:02 AM COMPARISON: Prior study dated: 03/22/2022 FINDINGS: LINES/DEVICES: None. LUNGS: No consolidation. No pneumothorax. MEDIASTINUM: Unremarkable. CARDIAC SILHOUETTE: Not enlarged. BONES AND SOFT TISSUES: No acute abnormalities. RAD/Chest 1 View (Portable) IMPRESSION: No evidence of active intrathoracic disease. Electronically Signed: Corie Denny MD at 3:44 EDT ,
[2024-02-26 02:57] LABS: Absolute Lymphocyte Count 2.29 X10^3/uL (0.83-4.51); Absolute Neutrophil Count 6.7 X10^3/uL (2.0-7.7); Basophil# 0.05 X10^3/uL; Basophil% 0.5 % (0-1); Eosinophil# 0.22 X10^3/uL; Eosinophils% 2.2 % (0-5); Hematocrit 40.6 % (37-47); Hemoglobin 13.5 g/dL (12.0-15.0); Lymphocyte # 2.29 X10^3/ul (0.83-4.51); Lymphocyte % 23.1 % (19-41); Mean Corp Hgb Conc 33.3 g/dL (32-36); Mean Corpuscular Hgb 29.6 pg (27.0-32.0); Mean Platelet Vol. 10.3 fl (6.2-12.0); Monocyte# 0.64 X10^3/uL; Monocyte% 6.5 % (0-10); NRBC Flagged by Analyzer 0 % (0-5); Neutrophil # 6.69 X10^3/uL (2.7-7.7); Neutrophil % 67.5 % (47-70); Platelet Count 269 K/mm3 (150-450); RBC Distribution Width CV 12.8 % (11.6-14.6); RBC Distribution Width SD 41.7 fl (35.1-43.9); Red Blood Count 4.56 M/mm3 (4.2-5.4); White Blood Count 9.9 K/mm3 (4.4-11.0)
[2024-02-26 03:15] LABS: Anion Gap 7 (5-15); BUN 15 mg/dL (7-18); BUN/Creat Ratio 18.9 RATIO (10-20); Calcium,Total 8.8 mg/dL (8.5-10.1); Chloride 106 mmol/L (98-107); EST Glomerular Filtration Rate 84 mL/min (>60); Est Glom Filt Rate - Afr Amer 101 mL/min (>60); Estimated Creatinine Clearance 107.39 ml/min; Glucose 115 mg/dL (74-106); Potassium 3.9 mmol/L (3.5-5.1); Sodium Level 137 mmol/L (136-145)
[2024-02-26] MEDS: LORazepam 2 MG/ML Syringe 0.5 MG IV (03:16)
--- NOTE | 2024-02-26 03:50 | EX.ED.DYSGE1 ---
HPI History of Present Illness Chief Complaint: Anxiety Informant: patient and spouse/S.O. Narrative Narrative: 42-year-old female history of depression presenting to the emergency room with anxiety. Patient states that for more than a week she has had difficulty sleeping at night. She states she is lays down wakes up out of sleep short of breath anxious pacing the house feeling palpitations and is concerned that there is something more than anxiety. She has not spoken to her doctor about this. She is treated with Zoloft and states that she used to have started that about a year ago. She notes that she has an upcoming trip that she wonders if she is anxious about. She has not had this type of reactions in the past. She currently sees primary care for her depression. She used to be on Cymbalta to about a year ago when it was changed. She is also treated for hypertension. [facility] Medical History TIA (transient ischemic attack) Depression Carpal tunnel syndrome, bilateral Home Medications ?Medication ?Instructions ?Recorded ?Last Taken ?Type duloxetine 60 mg capsule,delayed 60 mg PO BID DEPRESSION 03/22/22 03/21/22 History release amlodipine 5 mg tablet 5 mg PO DAILY 02/26/24 Unknown History lorazepam 0.5 mg tablet (Ativan) 0.5 mg PO TID PRN anxiety #14 tabs 02/26/24 Unknown Rx losartan 100 mg tablet 100 mg PO DAILY 02/26/24 Unknown History Allergy/AdvReac Type Severity Reaction Status Date / Time No Known Allergies Allergy Verified 03/22/22 15:39 Surgical History H/O bilateral breast reduction surgery Social History Smoking Status: Never smoker ROS ROS ED Constitutional Constitutional ED: Reports other Details: Weight gain ; Denies chills, fever(s) or weight loss Eyes Eyes: Denies blurry vision, change in vision or diplopia ENT ENT ED: Denies ear pain, rhinorrhea or sore throat Cardiovascular Cardiovascular: Reports palpitations; Denies chest pain, orthopnea or racing heartbeat Respiratory/Chest Respiratory/Chest: Reports dyspnea; Denies cough or orthopnea Gastrointestinal Gastrointestinal: Denies abdominal pain, diarrhea, nausea or vomiting Genitourinary Genitourinary ED: Denies dysuria, hematuria or urinary frequency Musculoskeletal Musculoskeletal: Denies arthralgias or myalgias Integumentary Denies abscess or rash Neurologic Neurologic: Denies headache(s) or weakness Psychiatric Psychiatric: Reports anxiety and depression; Denies suicidal ideation or suicidal thoughts Endocrine Endocrinology: Denies polydipsia, polyphagia or polyuria Allergic/Immunologic Allergic/Immunologic ED: Denies mouth swelling, tongue swelling or urticaria EXAM Physical Exam Const Vital Signs: 02/26/24 02:04 Temperature 97.7 F L Temperature Source Oral Pulse Rate 75 Respiratory Rate 18 Blood Pressure 173/78 H Blood Pressure Mean 109 Pulse Ox 100 Oxygen Delivery Method Room Air Positive well nourished and well developed General Appearance ED: well developed HEENT Reports normocephalic, head/scalp atraumatic and moist mucous membranes Eyes PERRL and EOMs intact bilaterally Neck no lymphadenopathy, supple and no JVD Neck Narrative: No goiter or enlarged thyroid is felt Resp normal respiratory effort and clear to auscultation bilaterally Cardio regular rate, regular rhythm and no murmurs GI normal to inspection, nondistended, normoactive bowel sounds and non-tender Palpation: soft Back/Spine no CVA tenderness and normal ROM Extremity normal to inspection General Extremety ED: Negative for edema General Extremity: Negative for edema Neuro oriented x3 and CN's II-XII intact bilaterally Sensorium / Orientation: alert Motor Exam: strength 5/5 throughout Psych mental status grossly normal Mood & Affect: anxious; Negative for depressed or tearful Skin no rashes or lesions noted and no wounds MDM MDM MDM Narrative Medical decision making narrative: Differential diagnosis includes anemia electrolyte abnormalities dehydration cardiac dysrhythmia pneumothorax pleural effusion congestive heart failure Patient's EKG is nonischemic. She is 100% on room air. She is slightly hypertensive that does come down with simple rest. Basic blood work is rather unremarkable glucose 115 hemoglobin 13.5 electrolytes are normal. My independent interpretation of the chest x-ray is no acute process. Clinically I think that this is most likely anxiety. I have asked that she follow-up with her primary care doctor within the week. I can write a few Ativan to bridge the gap till she sees them. She did receive a dose here which helped. Patient is comfortable with this plan. I also discussed the possibility about following up with psychiatry and she is open to this idea so I will write a referral. History & Record Review Discussion w/independent historian: Patient Lab Data Attestation: I reviewed the patient's lab results. Labs: Laboratory Results - last 24 hr 02/26/24 02:50 WBC 9.9 RBC 4.56 Hgb 13.5 Hct 40.6 MCV 89.0 MCH 29.6 MCHC 33.3 RDW Std Deviation 41.7 RDW Coeff of Bob 12.8 Plt Count 269 MPV 10.3 Immature Gran % (Auto) 0.200 Neut % (Auto) 67.5 Lymph % (Auto) 23.1 [place] % (Auto) 6.5 Eos % (Auto) 2.2 Baso % (Auto) 0.5 Absolute Neuts (auto) 6.7 Absolute Lymphs (auto) 2.29 Nucleated RBC % 0 Sodium 137 Potassium 3.9 Chloride 106 Carbon Dioxide 24.0 Anion Gap 7 BUN 15 Creatinine 0.80 Estim Creat Clear Calc 107.39 Est GFR (MDRD) Af Amer 101 Est GFR (MDRD) Non-Af 84 BUN/Creatinine Ratio 18.9 Glucose 115 H Calcium 8.8 Radiography Diagnostic Testing: Clinical Impression(s) from Imaging Studies Chest X-Ray 02/26/24 02:16 IMPRESSION: No evidence of active intrathoracic disease. Electronically Signed: Corie Denny MD at 3:44 EDT Reading Location ID and State: [address] [place] [address] Tel , Service support , EKG Initial EKG: Attestation: I personally reviewed and interpreted this EKG as follows: Comments: Normal sinus rhythm ventricular rate 66 bpm Discharge Plan Triage Chief Complaint: Anxiety ED Provider: Dilip Abarca Dx/Rx/DC Orders Clinical Impression: Anxiety, Acute dyspnea Instructions: ED Anxiety Reaction Prescriptions: New lorazepam [Ativan] 0.5 mg tablet 0.5 mg PO TID PRN (Reason: anxiety) Qty: 14 0RF No Action duloxetine 60 mg capsule,delayed release(DR/EC) 60 mg PO BID Patient Comments: TAKE 1 CAPSULE BY MOUTH TWICE A DAY amlodipine 5 mg tablet 5 mg PO DAILY losartan 100 mg tablet 100 mg PO DAILY Primary Care Provider: Sebastien Mittal Referrals: Sebastien Mittal MD [Primary Care Provider] - As soon as possible SeeIam hogan DO [Med Staff - Rig Operator] - (for psychiatry) Print Language: Bulgarian Disposition Disposition: Home, Self Care
[2024-02-26 03:55] VITALS: BP 154/86; PULSE 71; RESP 18; TEMP 36.5; O2SAT 100
== END 2024-02-26 03:56 | disposition home or self-care (01) ==
PROVIDERS: Emergency Provider Emergency Medicine; PCP Family Medicine; Visit Provider Emergency Medicine
DX: F41.9 Anxiety disorder, unspecified (principal); R06.00 Dyspnea, unspecified; F32.A Depression, unspecified; I10 Essential (primary) hypertension; Z86.73 Personal history of transient ischemic attack (TIA), and cerebral infarction without residual deficits; Z79.899 Other long term (current) drug therapy
CPT/HCPCS: 71045; 80048; 85025; 93005; 96374; 99283; A4216